=== PATIENT | male | born 1935 | race Caucasian/White ===

== ENCOUNTER 2023-01-28 19:32 | Inpatient (IN) | payer MEDICARE, BC ==
[2023-01-28 19:47] LABS: BASOPHILS ABSOLUTE AUTO 0.05 K/uL (0.00-0.10); BASOPHILS PERCENT AUTO 0.4 % (0.1-1.3); EOSINOPHILS PERCENT AUTO 0.8 % (0.0-5.4); HEMATOCRIT 40.5 % (38.4-49.7); HEMOGLOBIN 13.5 g/dL (12.9-16.9); IMMATURE GRAN ABSOLUTE AUTO 0.05 K/uL (0.00-0.23); IMMATURE GRAN PERCENT AUTO 0.4 % (0.0-0.7); LYMPHOCYTES ABSOLUTE AUTO 1.14 K/uL (0.8-3.3); LYMPHOCYTES PERCENT AUTO 8.9 % (11.4-47.7); MEAN CORPUSCULAR HEMOGLOBIN 30.8 pg (31.6-35.5); MEAN CORPUSCULAR HGB CONC 33.3 g/dL (31.6-35.5); MEAN CORPUSCULAR VOLUME 92.5 fL (81.4-99.0); MONOCYTES ABSOLUTE AUTO 1.03 K/uL (0.20-0.90); NEUTROPHILS ABSOLUTE AUTO 10.51 K/uL (1.0-7.6); NEUTROPHILS PERCENT AUTO 81.5 % (40.0-78.1); PLATELET COUNT,PLT 161 K/uL (130-375); RED BLOOD CELL COUNT 4.38 M/uL (4.14-5.76); WHITE BLOOD CELL COUNT,WBC 12.9 K/uL (3.2-11.0)
[2023-01-28 20:11] LABS: A/G RATIO 0.7 (1.2-2.2); ALANINE AMINOTRANSFERASE,ALT 24 U/L (12-78); ALBUMIN 3.1 g/dL (3.4-5.0); ALKALINE PHOSPHATASE 86 U/L (46-116); ANION GAP 8.1 mmol/L (5.0-14.0); ASPARTATE AMNIOTRANSFERASE,AST 28 U/L (15-37); BILIRUBIN TOTAL 1.5 mg/dL (0.2-1.0); BLOOD UREA NITROGEN,BUN 29 mg/dL (7-18); CALCIUM 9.3 mg/dL (8.5-10.1); CARBON DIOXIDE,CO2 30 mmol/L (21-32); CHLORIDE,CL 104 mmol/L (100-108); CREATININE 1.4 mg/dL (0.8-1.3); EST CRCL DRUG DOSING (CG) 37.12 mL/min; ESTIMATED GFR 49 mL/min (>60); GLUCOSE RANDOM 118 mg/dL (74-106); POTASSIUM,K 4.1 mmol/L (3.6-5.2); PROTEIN TOTAL,TP 7.3 g/dL (6.4-8.2); SODIUM,NA 142 mmol/L (140-148)
[2023-01-28] MEDS ORDERED: LORazepam 2 MG/ML SDV IV PRN (21:57)
[2023-01-28] MEDS ORDERED: Ondansetron 4 MG Tab.DIS PO PRN (21:57)
[2023-01-28] MEDS ORDERED: Docusate Sodium 100 MG Cap PO PRN (21:57)
[2023-01-28] MEDS ORDERED: Albuterol 0.083% 2.5 MG/3 ML Neb Soln NEB PRN (21:57)
[2023-01-28] MEDS ORDERED: Enoxaparin 40 MG/0.4 ML Syringe SUBCUT SCH (21:57)
[2023-01-28] MEDS ORDERED: Acetaminophen 325 MG Tab PO PRN (21:57)
[2023-01-28] MEDS ORDERED: Morphine 2 MG/ML SYRINGE IVPUSH PRN (21:57)
[2023-01-28] MEDS ORDERED: oxyCODONE 5 MG Tab PO PRN (21:57)
[2023-01-28] MEDS ORDERED: Azithromycin 500 MG in Sodium Chloride 0.9% 250 ML IV SCH (21:57)
[2023-01-28] MEDS ORDERED: Sodium Chloride 0.9% 1,000 ML IV SCH (21:57)
[2023-01-28] MEDS ORDERED: cefTRIAXone 1 GM in Sodium Chloride 0.9% 50 ML IV SCH (22:00)
[2023-01-28 22:41] LABS: APPEARANCE,URINE CLEAR (CLEAR); BILIRUBIN,URINE SMALL (NEGATIVE); COLOR,URINE YELLOW (YELLOW); GLUCOSE,URINE NEGATIVE (NEGATIVE); KETONES,URINE TRACE mg/dL (NEGATIVE); LEUKOCYTE ESTERASE,URINE NEGATIVE (NEGATIVE); NITRITE,URINE NEGATIVE (NEGATIVE); OCCULT BLOOD,URINE LARGE (NEGATIVE); PH,URINE 5.5 (5.0-8.0); PROTEIN,URINE 100 mg/dL (NEGATIVE); UROBILINOGEN,URINE 0.2 EU/dL (0.2-1.0)
[2023-01-28] MEDS: Melatonin 3 MG Tab PO PRN (23:01)
[2023-01-28 23:12] LABS: AMORPHOUS SEDIMENT,URINE NOT SEEN; BACTERIA,URINE FEW; EPITHELIAL CELLS,URINE FEW; MUCUS,URINE NOT SEEN; RBC,URINE 75-100 (0-5); WBC,URINE 0-5 (0-5)
[2023-01-29 04:43] LABS: BASOPHILS ABSOLUTE AUTO 0.05 K/uL (0.00-0.10); BASOPHILS PERCENT AUTO 0.4 % (0.1-1.3); EOSINOPHILS ABSOLUTE AUTO 0.06 K/uL (0.00-0.40); EOSINOPHILS PERCENT AUTO 0.5 % (0.0-5.4); HEMATOCRIT 39.4 % (38.4-49.7); HEMOGLOBIN 13.1 g/dL (12.9-16.9); IMMATURE GRAN ABSOLUTE AUTO 0.06 K/uL (0.00-0.23); IMMATURE GRAN PERCENT AUTO 0.5 % (0.0-0.7); LYMPHOCYTES ABSOLUTE AUTO 0.98 K/uL (0.8-3.3); LYMPHOCYTES PERCENT AUTO 8.5 % (11.4-47.7); MEAN CORPUSCULAR HEMOGLOBIN 30.6 pg (31.6-35.5); MEAN CORPUSCULAR HGB CONC 33.2 g/dL (31.6-35.5); MEAN CORPUSCULAR VOLUME 92.1 fL (81.4-99.0); MONOCYTES ABSOLUTE AUTO 1.06 K/uL (0.20-0.90); MONOCYTES PERCENT AUTO 9.2 % (3.3-12.6); NEUTROPHILS ABSOLUTE AUTO 9.32 K/uL (1.0-7.6); NEUTROPHILS PERCENT AUTO 80.9 % (40.0-78.1); PLATELET COUNT,PLT 149 K/uL (130-375); RED BLOOD CELL COUNT 4.28 M/uL (4.14-5.76); WHITE BLOOD CELL COUNT,WBC 11.5 K/uL (3.2-11.0)
[2023-01-29 05:02] LABS: CREATININE 1.2 mg/dL (0.8-1.3); EST CRCL DRUG DOSING (CG) 39.66 mL/min; POTASSIUM,K 3.2 mmol/L (3.6-5.2)
[2023-01-29 05:09] LABS: ANION GAP 13.2 mmol/L (5.0-14.0)
[2023-01-29] MEDS ORDERED: Potassium Chloride 20 MEQ Tab.ER PO ONE (08:30)
[2023-01-29] MEDS ORDERED: Pantoprazole 40 MG Tab.CR PO SCH (09:00)
[2023-01-29] MEDS ORDERED: Memantine 5 MG Tab PO SCH ×2 (09:00)
[2023-01-29] MEDS: Furosemide 20 MG Tab PO SCH (09:28)
[2023-01-29] MEDS: Aspirin 81 MG Tab.EC PO SCH (09:28)
[2023-01-29] MEDS: Pantoprazole 40 MG Tab.CR PO SCH (09:28)
[2023-01-29] MEDS: Metoprolol Succinate 25 MG Tab.ER PO SCH (09:29)
[2023-01-29] MEDS: Memantine 10 MG Tab PO SCH (12:49)
[2023-01-29] MEDS ORDERED: Haloperidol 5 MG Tab PO PRN (19:32)
[2023-01-29] MEDS ORDERED: Haloperidol Lactate 5 MG/ML SDV IM PRN (19:32)
[2023-01-29] MEDS ORDERED: OLANZapine 5 MG Tab PO PRN (19:37)
[2023-01-29] MEDS: Cefdinir 300 MG Cap PO SCH (20:19)
[2023-01-29] MEDS: Melatonin 3 MG Tab PO PRN (20:20)
[2023-01-29] MEDS ORDERED: Divalproex Sodium Delayed-Release 250 MG Tab.CR PO SCH (21:00)
[2023-01-29] MEDS ORDERED: Azithromycin 250 MG Tab PO SCH (21:00)
[2023-01-29] MEDS ORDERED: Valproic Acid 250 MG/5 ML Syrup ML (473 ML Bottle) PO SCH (21:00)
[2023-01-29] MEDS ORDERED: atorvaSTATin 20 MG Tab PO SCH (21:00)
[2023-01-29] MEDS ORDERED: Enoxaparin 40 MG/0.4 ML Syringe SUBCUT SCH (21:00)
[2023-01-29] MEDS ORDERED: Divalproex Sodium Delayed-Release 250 MG Tab.CR PO PRN (21:08)
[2023-01-30 04:48] LABS: HEMATOCRIT 37.8 % (38.4-49.7); HEMOGLOBIN 12.8 g/dL (12.9-16.9); MEAN CORPUSCULAR HEMOGLOBIN 31.2 pg (31.6-35.5); MEAN CORPUSCULAR HGB CONC 33.9 g/dL (31.6-35.5); MEAN CORPUSCULAR VOLUME 92.2 fL (81.4-99.0); RED BLOOD CELL COUNT 4.1 M/uL (4.14-5.76); WHITE BLOOD CELL COUNT,WBC 9.6 K/uL (3.2-11.0)
[2023-01-30 05:06] LABS: CREATININE 1.1 mg/dL (0.8-1.3); EST CRCL DRUG DOSING (CG) 43.26 mL/min
[2023-01-30] MEDS ORDERED: Potassium Chloride 20 MEQ Tab.ER PO SCH (08:15)
[2023-01-30] MEDS: Cefdinir 300 MG Cap PO SCH (13:12)
[2023-01-30] MEDS: Pantoprazole 40 MG Tab.CR PO SCH (13:12)
[2023-01-30] MEDS: Furosemide 20 MG Tab PO SCH (13:12)
[2023-01-30] MEDS: Memantine 10 MG Tab PO SCH (13:12)
[2023-01-30] MEDS: Metoprolol Succinate 25 MG Tab.ER PO SCH (13:13)
[2023-01-30] MEDS: Aspirin 81 MG Tab.EC PO SCH (13:13)
== END 2023-01-30 16:30 | disposition home or self-care (01) | DRG 194 ==
LOC: JP.ED 19:32 → JP.MS 21:37 → UNDOADMIN 21:37 → JP.MS 22:38
PROVIDERS: ADMIT Internal Medicine; ATTEND Internal Medicine
DX: J18.9 Pneumonia, unspecified organism (principal); F02.811 Dementia in other diseases classified elsewhere, unspecified severity, with agitation; J44.0 Chronic obstructive pulmonary disease with (acute) lower respiratory infection; G30.9 Alzheimer's disease, unspecified; F02.80 Dementia in other diseases classified elsewhere, unspecified severity, without behavioral disturbance, psychotic disturbance, mood disturbance, and anxiety; I25.10 Atherosclerotic heart disease of native coronary artery without angina pectoris; H91.90 Unspecified hearing loss, unspecified ear; Z20.822 Contact with and (suspected) exposure to COVID-19; E86.0 Dehydration; Z96.649 Presence of unspecified artificial hip joint; E87.6 Hypokalemia; Z79.899 Other long term (current) drug therapy; Z79.82 Long term (current) use of aspirin; Z87.891 Personal history of nicotine dependence
CPT/HCPCS: 36415; 71045; 71045-26; 80048; 80053; 81001; 83605; 85025; 85027; 86140; 87040; 97161-GP; 99223; 99233; 99238; 99285; A9270-GY; J0456; J0696; J1650; J3490; J7050; U0002